=== PATIENT | male | born 1960 | race Caucasian/White ===

== ENCOUNTER 2025-03-20 15:05 | Emergency (ER) | payer MEDICARE, OTHER, SELFPAY ==
[2025-03-20] VITALS (14 sets, daily range): BP systolic 147–182; BP diastolic 92–108; BMI 36.8
[2025-03-20 15:31] LABS: Hematocrit 42.1 % (39.0-52.0); Hemoglobin 15.4 g/dL (13.0-18.0); Mean Corp Hgb Conc. 36.6 g/dL (33.0-37.0); Mean Corpuscular Volume 89.4 fL (80.0-94.0); Nucleated Red Blood Cells % 0 % (-); Platelet Count 245 10^3/uL (130-400); Red Cell Dist. Width 11.6 % (11.5-14.5)
[2025-03-20 15:46] LABS: ALT (SGPT) 33 U/L (0-50); AST (SGOT) 33 U/L (17-59); Albumin 4.9 g/dl (3.5-5.0); Alkaline Phosphatase 86 U/L (38-126); Blood Urea Nitrogen 13 mg/dl (9-20); Calcium 9.7 mg/dl (8.4-10.2); Carbon Dioxide 20 mmol/L (22-30); Chloride 108 mmol/L (98-107); Estimated Creatinine Clearance > 125 ml/min; Glucose 142 mg/dl (70-99); Potassium 3.8 mmol/L (3.5-5.1); Sodium 138 mmol/L (135-145); Total Protein 7.5 g/dl (6.3-8.2); eGFR > 60.00
--- NOTE | 2025-03-20 18:57 | ED.GENMED ---
History of Present Illness
General
Chief Complaint: Dizziness
Source: patient
Exam Limitations: none
Time Seen by Provider: 03/20/25 18:37
History of Present Illness
History of Present Illness:
65-year-old male with history of prostate cancer hypertension presents with onset of dizziness this morning. He rolled over in bed and felt the room spinning. He then became nauseous and vomited. He had some loose stool as well. He also notes a
headache. He has been congested with runny nose and nasal congestion. He denies fever. No unilateral numbness or weakness. No rash. He denies double vision blurry vision. No other complaints.
Phy Exam
Physical Exam
Physical Exam:
General: Well-appearing male no acute respiratory distress HEENT: Normal cephalic atraumatic pupils equal round reactive to light horizontal nystagmus is noted TMs normal
Heart: RRR
Lungs: CTA
Neurologic exam: Alert and oriented x 3 face is symmetric no dysarthria or aphasia. Finger-nose [id number] intact no drift on exam. [place] reproduces dizziness and significant horizontally beating nystagmus when he is turned to the left.
Extremities: No cyanosis or edema
Skin warm no rash
Course
Orders/Labs/Results
Orders:
Orders
03/20/25 15:15
Electrocardiogram (*1) Urgent
Reason for Study: Vertigo / Dizzy
EKG- Treatment ONCE
03/20/25 15:17
Complete Blood Count/With Diff Urgent
Comprehensive Metabolic Panel Urgent
03/20/25 18:54
Meclizine [Antivert] 25 mg PO NOW STA
NIFEdipine EXTENDED RELEASE [Procardia Xl (Extended Release)] 90 mg PO NOW STA
03/20/25 18:55
CT Head W/o Iv Contrast Urgent
Comment:
Reason For Exam: headache, dizzy, h/o prostate CA
03/20/25 18:58
0.9% Sodium Chloride 1000 ml [Nss] 1,000 ml IV BOLUS
03/20/25 21:46
Metoprolol [Lopressor] 5 mg IV NOW STA
Ondansetron Injectable [Zofran] 4 mg IV NOW STA
Abnormal Lab Results
03/20/25
15:17
MCH 32.7 H pg
(27.0-31.0)
Absolute Neuts (auto) 9.4 H 10^3/uL
(1.4-6.5)
Absolute Lymphs (auto) 0.5 L 10^3/uL
(1.2-3.4)
Neutrophils % 91.4 H %
(42.2-75.2)
Lymphocytes % 5.1 L %
(20.5-51.1)
Chloride 108 H mmol/L
(98-107)
Carbon Dioxide 20 L mmol/L
(22-30)
Creatinine 0.6 L mg/dL
(0.7-1.3)
Glucose 142 H mg/dl
(70-99)
03/20/25 15:17
03/20/25 15:17
Vital Signs
Initial and Last Documented VS:
Initial Vital Signs
Temp Pulse Resp BP Pulse Ox
98.5 F 96 21 176/103 94
03/20/25 15:08 03/20/25 15:08 03/20/25 15:08 03/20/25 15:08 03/20/25 15:08
Last Documented Vital Signs
Temp Pulse Resp BP Pulse Ox
98.5 F 100 18 158/101 96
03/20/25 15:08 03/20/25 22:33 03/20/25 21:15 03/20/25 22:33 03/20/25 21:15
MDM/Problems Addressed
Differential Diagnosis Includes:
Patient with dizziness and headache. Consider vertigo. He has a remote history of prostate cancer and has a headache. Will order CT of the head to evaluate for any hemorrhage or tumors. Exam most consistent with positional vertigo however. Will
order meclizine and fluids.
EKG shows sinus rhythm without ischemic changes and a rate of 94
*Pulse Oximetry
SaO2: 94
Oxygen Mode of Delivery: Room air
Patient hypoxic: no
*Critical Care Note
Total Time (30-74mins, 75-104mins- exclusive of procedures): Not Applicable
Update Note
Update Note:
Patient CT negative. Feeling better after meclizine. He was hydrated. Blood pressure rechecked, still slightly high. He was given Lopressor IV which responded well. At this point no indication for admission. Prescription was given for
vestibular rehab and follow-up with family doctor
ED Attending Note
-
Portions of this chart may have been created with voice recognition software.� Occasional wrong word or��sound alike� substitutions may have occurred due to the inherent limitations of voice recognition software.
Discharge Plan
Departure
Patient Disposition: Home (Routine Discharge)
Date of Disposition: 03/20/25
Time of Disposition: 23:02
Patient with high blood pressure during this ER visit?: No
Discharge Problem:
Benign positional vertigo
Instructions: Vertigo (a Type of Dizziness) (DC), Exercises (maneuvers) for benign paroxysmal positional vertigo
Prescriptions:
New
meclizine 25 mg tablet
25 mg PO TID PRN (Reason: dizziness) Qty: 10 0RF
Referrals:
Bonita Roberts MD [Family Provider]
Activity Restrictions/Additional Instructions:
Use meclizine as needed. Please follow-up with family doctor for blood pressure recheck. Consider vestibular rehab for persistent dizziness.
Interventions
Interventions:
*Risk Screen - Suicide Last Done: 03/20/25 15:19
*General Assessment Last Done: 03/20/25 15:19
*Neglect/Abuse Screening Last Done: 03/20/25 15:19
*ED- Fall Risk Assessment Last Done: 03/20/25 15:08
*ED COVID-19 Vaccine History Last Done: 03/20/25 15:08
*ED Influenza Vaccine History Last Done: 03/20/25 15:08
ED- Neurological Assessment Last Done: 03/20/25 15:19
ED- Cardiac Assessment Last Done: 03/20/25 15:19
ED Swallowing Screen Last Done: 03/20/25 19:12
Discharge Date and Time
Print Language: HUNGARIAN
[2025-03-20] MEDS: NSS 1000 IV (19:03)
[2025-03-20] MEDS: PROCARDIA XL (EXTENDED RELEASE) 90 MG PO (19:04)
[2025-03-20] MEDS: ANTIVERT 25 MG PO (19:06)
[2025-03-20] MEDS: LOPRESSOR 5 MG IV (22:33)
[2025-03-20] MEDS: ZOFRAN 4 MG IV (22:33)
== END 2025-03-20 23:15 | disposition home or self-care (01) ==
LOC: EMR 15:05
PROVIDERS: EMERGENCY PHYSICIAN Emergency Medicine; FAMILY PHYSICIAN Family Medicine
DX: H81.10 Benign paroxysmal vertigo, unspecified ear (principal); I10 Essential (primary) hypertension; I44.0 Atrioventricular block, first degree; Z85.46 Personal history of malignant neoplasm of prostate
CPT/HCPCS: 99284; 96374; 96375; 96361; 70450; 80053; 85025; 93005